=== PATIENT | female | born 1980 | race Caucasian/White ===

== ENCOUNTER 2019-01-22 15:51 | Outpatient (CLI) | payer OTHER | END 2019-01-22 23:59 | disposition home or self-care (01) | LOC: CVU 15:51 | PROVIDERS: ATTEND Internal Medicine Cardiovascular Disease | DX: I10 Essential (primary) hypertension (principal); E11.9 Type 2 diabetes mellitus without complications | CPT/HCPCS: 0399T; 93306 ==